=== PATIENT | female | born 1980 | race Caucasian/White ===

== ENCOUNTER 2023-10-25 12:27 | Observation (INO) | payer OTHER ==
[~2023-10-25] VITALS: Ht 170.2 cm; Wt 75.2 kg
[2023-10-25] VITALS (7 sets, daily range): BP systolic 133–173; BP diastolic 84–103
--- NOTE | ~2023-10-25 | EKG ---
[facility] [address] [place], [place] [address] Draft EK completed, results pending confirmation PATIENT NAME: OVIDIO,DYANA Electrocardiogram DATE OF : PHYSICIAN: PRELIMINARY REPORT #: [id number] REPORT IS CONFIDENTIAL AND NOT TO BE RELEASED WITHOUT AUTHORIZATION
[2023-10-25] MEDS ORDERED: SODIUM CHLORIDE 0.9% 1,000 ML IV ONE ×2 (12:45→14:00)
[2023-10-25 13:01] LABS: PH, VENOUS 7.399 (7.31-7.41)
[2023-10-25 13:04] LABS: BASOPHILS 1.2 % (0-2); EOSINOPHILS 1.8 % (0-6); LYMPHOCYTES 26.7 % (24-44); MCH 32.5 (27-36); MCHC 33.3 g/dl (30-36); MCV 97.5 fl (81-99); MONOCYTES 6.8 % (0-12); NEUTROPHILS 63.5 % (39-80); PLATELET COUNT 363 K/uL (140-440); RBC 4.61 M/ul (4.3-5.7); RDW 14.8 (10.5-15.0)
[2023-10-25 13:19] LABS: ALBUMIN 3.5 g/dL (3.4-5.0); ALBUMIN/GLOBULIN RATIO 0.97 (1.1-2.4); BILIRUBIN, TOTAL 0.3 ng/dL (0.2-1.0); BUN/CREATININE RATIO 11.76 (6.0-28.6); CALCIUM 8.4 mg/dL (8.5-10.1); CREATININE, SERUM 0.51 mg/dL (0.55-1.02); PROTEIN, TOTAL 7.1 g/dL (6.4-8.2)
[2023-10-25 13:28] LABS: BILIRUBIN, URINE NEGATIVE (negative); BLOOD/HGB, URINE TRACE-I (Negative); KETONE, URINE NEGATIVE (Negative); LEUK ESTERASE, URINE NEGATIVE (negative); NITRITE, URINE NEGATIVE (negative)
[2023-10-25 13:36] LABS: BACTERIA, URINE NONE SEEN /hpf (negative); CASTS, URINE NONE SEEN \\lpf; CRYSTALS, URINE NONE SEEN (0-1+); EPITHELIAL CELLS, URINE SQUAMOUS 1+ /lpf (0-1+); RED BLOOD CELLS, URINE 0-1 /hpf (0-5); WHITE BLOOD CELLS, URINE 0-1 /HPF (0-5)
[2023-10-25 13:37] LABS: COLLECTION TYPE, URINE CATH; REFLEX CULTURE, URINE No (No)
[2023-10-25 13:42] LABS: AMPHETAMINES, URINE POSITIVE (NEGATIVE); BARBITURATES, URINE NEGATIVE (NEGATIVE); BENZODIAZEPINE, URINE NEGATIVE (NEGATIVE); BUPRENORPHINE, URINE NEGATIVE (NEGATIVE); CANNABINOID, URINE POSITIVE (NEGATIVE); COCAINE, URINE NEGATIVE (NEGATIVE); ECSTASY, URINE NEGATIVE (NEGATIVE); FENTANYL, URINE NEGATIVE (NEGATIVE); METHADONE, URINE NEGATIVE (NEGATIVE); OPIATES, URINE NEGATIVE (NEGATIVE); OXYCODONE, URINE NEGATIVE (NEGATIVE); PHENCYCLIDINE, URINE NEGATIVE (NEGATIVE)
[2023-10-25] MEDS ORDERED: hydrALAZINE HCL 20 MG/ML VIAL IV ONE (14:15)
[2023-10-25] MEDS ORDERED: levoFLOXacin 750 MG/150 ML BAG IV SCH (16:35)
[2023-10-25] MEDS ORDERED: MULTIVITAMINS 10 ML,FOLIC ACID 1 MG,THIAMINE HCL 100 MG in SODIUM CHLORIDE 0.9% 1,000 ML IV SCH (16:51)
[2023-10-25] MEDS ORDERED: ondansetron HCL 4 MG/2 ML VIAL IV PRN (17:30)
[2023-10-25] MEDS ORDERED: ACETAMINOPHEN 325 MG TAB PO PRN (17:30)
[2023-10-25] MEDS ORDERED: diphenhydrAMINE HCL 50 MG/ML VIAL IV PRN (17:30)
[2023-10-25] MEDS ORDERED: SODIUM CHLORIDE 0.9% 1,000 ML IV SCH (17:30)
[2023-10-25] MEDS ORDERED: PROCHLORPERAZINE EDISYLATE 10 MG/2 ML VIAL IV PRN (17:30)
[2023-10-25] MEDS ORDERED: LORazepam 2 MG/ML VIAL IV PRN (17:30)
--- NOTE | 2023-10-25 17:30 | NUR ---
PT ARRIVED TO THE UNIT VIA STRETCHER. PT AWAKE BUT DROWSY. ABLE TO ANSWER QUESTIONS AND FOLLOW COMMANDS. PT O2 SAT ON ROOM AIR IS 100, PULSE 58, BP 149/89, AND RR 16. LUNG SOUNDS CLEAR, AND BOWEL TONES ACTIVE. PT REQUESTED TO GET UP TO THE COMMODE. PT TOLERATED WELL, STATED SHE GOT A LITTLE DIZZY ON TRANSFER. PT BACK TO BED. CALL LIGHT WITHIN REACH.
--- NOTE | 2023-10-25 18:42 | NUR ---
DR SEAMAN IN THE ROOM TO ASSESS THE PT. PT ABLE TO ANSWER QUESTIONS AND UPDATED WITH THE PLAN OF CARE AND THE CHANGES. PT HAS NO NEEDS AT THIS TIME. CALL LIGHT WITHIN REACH.
[2023-10-25] MEDS ORDERED: hydrALAZINE HCL 20 MG/ML VIAL IV PRN (19:15)
--- NOTE | 2023-10-25 21:17 | NUR ---
REPORT RECEIVED FROM [facility]O ORDOÑE[facility]U, PT ARRIVED VIA BED FROM CCU TO ROOM 111, PT RESTING QUIETLY, RESP EVEN AND REGULAR, SIDE RAILS UP X 4, BED LOW POSITION, BED ALARM ON. HOB ELEVATED APPRROX 30 DEGREES.
--- NOTE | 2023-10-25 21:22 | NUR ---
Report given to Cindy on medical floor, pt transfered with Danielle (house float). handoff complete.
--- NOTE | 2023-10-25 22:00 | NUR ---
PT RESTING QUIETLY WITH HER EYES CLOSED, BRIEFLY AWAKENS FOR VS, PT TURNING AWAY FROM NURSE BUT COOPERATIVE WHEN ASK TO DO ORAL TEMP, VS STABLE, AFEBRILE, SATS 98% ON RA, SL PATENT RIGHT AC WITH GOOD BLOOD RETURN, NS STARTED AT 100ML/HR, LEFT EJ WITH DRESSING INTACT, CLAMPED, NO DRAINAGE NOTED, ASSESSMENT COMPLETED, PT WITHOUT REQUESTS AT THIS TIME.
--- NOTE | 2023-10-25 23:25 | NUR ---
PT ASLEEP, RESP EVEN AND REG, IVF INFUSING WELL. WITHOUT DISTRESS.
[2023-10-26] VITALS (7 sets, daily range): BP systolic 145–174; BP diastolic 83–99
--- NOTE | 2023-10-26 00:10 | NUR ---
PT REPOSITIONING SELF IN BED, EYES CLOSED AND RESTING, WITHOUT SIGNS OF DISTRESS.
--- NOTE | 2023-10-26 01:00 | NUR ---
PT ASSISTED UP TO B[facility] PER CICI ORDOÑEZ AND PAMELA RN, PT REPORTED TO HAVE TRANSFERED TO [facility] WELL, VOIDED 400ML YELLOW URINE, PT REQUESTING SNACK, GIVEN, PT WITHOUT COMPLAINTS AT THIS TIME, IVF INFUSING WELL, LEFT EJ INTACT WITHOUT BLEEDING.
--- NOTE | 2023-10-26 02:20 | NUR ---
PT ASLEEP RESP EVEN AND REG.
--- NOTE | 2023-10-26 02:53 | NUR ---
in room with priyanka bryant to collect 0200 vs, vss. pt left resting in bed with eyes closed, on ra. rr even and unlabored. call light and personal belongings in reach. bed alarm pn for safety.
--- NOTE | 2023-10-26 04:20 | NUR ---
PT RESTING QUIETLY, REPOSITIONING SELF OFF AND ON, IVF RATE INCREASED TO 125ML/HR PER ORDER, RESP EVEN AND REG.
--- NOTE | 2023-10-26 05:40 | NUR ---
PT RESTING QUIETLY, ATTEMPTED TO OBTAIN BLOOD FOR AM LABS VIA L EJ UNSUCESSFUL, SMALL AMOUNT BLOOD RETURN NOTED, FLUSHES WELL WITH 10ML NS, AM BLOOD OBTAIN PER VENOUS STICK FROM LEFT HAND, PT TOLERATED WELL, VS DONE AND STABLE, IV SITE RIGHT AC PATENT, PT EATING SNACK, THEN RESTING WITH EYES CLOSED.
[2023-10-26 05:43] LABS: BASOPHILS 0.9 % (0-2); EOSINOPHILS 2.1 % (0-6); HEMOGLOBIN 14.1 g/dL (12.0-18.0); LYMPHOCYTES 29.9 % (24-44); MCH 32.6 (27-36); MCHC 33.6 g/dl (30-36); MCV 97.1 fl (81-99); MONOCYTES 8.3 % (0-12); NEUTROPHILS 58.8 % (39-80); PLATELET COUNT 343 K/uL (140-440); RBC 4.33 M/ul (4.3-5.7); RDW 14.7 (10.5-15.0)
--- NOTE | 2023-10-26 05:53 | NUR ---
pt UP SBA TO [facility] AND VOIDED UNMEASURED AMOUNT WITH MEDIUM/LARGE BM. pt BACK TO BED, ALARM ON AND CALL LIGHT IN REACH. NO ADDITIONAL NEEDS OR CONCERNS VERBALIZED, PRIMARY RN KENRICK UPDATED.
[2023-10-26 05:56] LABS: ALBUMIN 2.9 g/dL (3.4-5.0); ALBUMIN/GLOBULIN RATIO 0.94 (1.1-2.4); ANION GAP 11.4 (7-21); BILIRUBIN, TOTAL 0.3 ng/dL (0.2-1.0); BUN/CREATININE RATIO 15.94 (6.0-28.6); CALCIUM 8.2 mg/dL (8.5-10.1); CREATININE, SERUM 0.69 mg/dL (0.55-1.02); POTASSIUM 4.4 mmol/L (3.5-5.1)
--- NOTE | 2023-10-26 06:47 | NUR ---
PT ASLEEP, RESP EVEN AND REG.
--- NOTE | 2023-10-26 07:05 | NUR ---
Pt report received from TIAGO Uribe
--- NOTE | 2023-10-26 07:35 | NUR ---
Report received from TIAGO Olivera. Patient lying in bed with eyes closed. Respirations even and unlabored, facial expression appears relaxed. IVF infusing. Call light in reach.
--- NOTE | 2023-10-26 08:25 | NUR ---
PATIENT WAKES EASILY FOR BREAKFAST WITH A VORACIOUS APPETITE. PATIENT IS ALERT AND ORIETED TO PERSON, PLACE, TIME AND SITUATION, HOWEVER DENIES RECALLING THE EVENTS THAT BROUGHT HER TO THE HOSPITAL. TOLERATED BREAKFAST WELL. DENIED PAIN OR DISCOMFORT. OUT OF BED TO BATHROOM TO VOID WITH STANDBY ASSIST WITH IV POLE. BACK TO BED AND PATIENT IMMEDIATELY CLOSES EYE AND APPEARS TO BE RESTING BUT EASILY WAKES TO NAME. CALL LIGHT IN REACH, BED LOW AND LOCKED WITH BED ALARM ON.
[2023-10-26] MEDS ORDERED: ENOXAPARIN SODIUM 40 MG/0.4 ML SYR SUB-Q SCH (09:00)
[2023-10-26] MEDS ORDERED: PANTOPRAZOLE SODIUM 40 MG/10 ML VIAL IV SCH (09:00)
[2023-10-26] MEDS ORDERED: LEVOFLOXACIN750 MG PO (10:27)
[2023-10-26] MEDS ORDERED: MULTI VITAMIN1 EACH PO (10:27)
[2023-10-26] MEDS ORDERED: PHARMACY RENAL DOSE ADJUSTMENT 1 DOSE MISC PO SCH (12:00)
--- NOTE | 2023-10-26 12:26 | NUR ---
PATIENT OOBTBR TO VOID. STEADY ON FEET. TOLERATED WELL. CONSUMED LUNCH, DENIES PAIN OR DISCOMFORT.
--- NOTE | 2023-10-26 13:00 | NUR ---
PATIENT VERBALIZED UNDERSTANDING OF DC INSTRUCTIONS. PIV X2 REMOVED WITHOUT DIFFUCULTY, CATHETER TIPS INTACT. SHOWER PROVIDED. CLOTHES AND SHOES PROVIDED. PATIENT REPORTS HER CLOTHES WERE CUT OFF OF HER. PERSONAL ITEMS OF BRACELETS X 2 RETURNED.
== END 2023-10-26 13:34 | disposition home or self-care (01) ==
LOC: ED 12:27 → CCU 16:32 → MS 16:32 → CCU 16:32 → EDBD 16:32 → MS 21:27
PROVIDERS: Emergency Medicine; ADMIT Internal Medicine; ATTEND Internal Medicine
DX: R41.82 Altered mental status, unspecified (principal); F15.10 Other stimulant abuse, uncomplicated; F10.10 Alcohol abuse, uncomplicated; F12.10 Cannabis abuse, uncomplicated
CPT/HCPCS: 36415; 51701; 70450; 71045; 80053; 80307; 81001; 82553; 82803; 83690; 83735; 85025; 93005; 93010; 96365; 96366; 96368; 96372; 96375; 96376; 99285-25; C9113; G0378; G0480; J0360; J1650; J1956; J3411; J7030